=== PATIENT | female | born 1945 | race Caucasian/White ===

== ENCOUNTER → 2018-03-10 | Outpatient (CLI) | payer OTHER ==
[~2018-03-10] MED LIST: Align4 MG PO; CHOL10002 PO; CHRO200 PO; CYCL10 PO; Celexa10 MG PO; ESTR.1TPW TOP; Frova2.5 MG; KRILL OIL 1,001 EAC1; LEVSOD100 PO; LIDO5TP TOP; PRAV20 PO; PROG100 PO; TRAM50 PO; ZOLP10 PO; [UNRECOGNIZED DRUG - OTHER] PO
== END | disposition home or self-care (01) ==
LOC: PLD 07:45 → LAB SHORT 07:45
DX: L57.0 Actinic keratosis (principal)
CPT/HCPCS: 88305

== ENCOUNTER 2018-04-06 07:12 | Day surgery (SDC) | payer OTHER ==
[~2018-04-06] VITALS: Ht 170.2 cm; Wt 68.5 kg
[~2018-04-06 07:12] MED LIST changes: +ATOR40TA PO; +CALCIUM 600 +1 EAC4 PO; +CITA20 PO; +CRANBERRY250 MG PO; +LEVO-T100 MCG PO; +LOSA25 PO; +MEGARED OMEGA-1 EAC1 PO; +Multiple Vitam1 EACH PO; +Red Yeast Rice600 MG PO; +VITAMIN D35000 UNIT PO
== END 2018-04-06 09:20 | disposition home or self-care (01) ==
LOC: ORSCSDS 07:12
PROVIDERS: Internal Medicine Gastroenterology
PROC: 0DJD8ZZ Inspection of Lower Intestinal Tract, Via Natural or Artificial Opening Endoscopic (ICD-10-PCS; principal; 2018-04-06 08:30)
DX: Z12.11 Encounter for screening for malignant neoplasm of colon (principal); K64.8 Other hemorrhoids; Z86.010 Personal history of colon polyps; Z80.0 Family history of malignant neoplasm of digestive organs; M79.7 Fibromyalgia; E07.9 Disorder of thyroid, unspecified; I10 Essential (primary) hypertension; Z87.891 Personal history of nicotine dependence; Z79.899 Other long term (current) drug therapy
CPT/HCPCS: J0330; J1980; J2405; J7120

== ENCOUNTER → 2018-06-02 | Outpatient (CLI) | payer OTHER | END | disposition home or self-care (01) | LOC: LAB 16:50 → LAB SHORT 16:50 | PROVIDERS: Nurse Practitioner Women's Health | DX: Z12.4 Encounter for screening for malignant neoplasm of cervix (principal) | CPT/HCPCS: 87624; G0123 ==

== ENCOUNTER → 2019-06-07 | Outpatient (CLI) | payer OTHER ==
[2019-06-09 14:07] LABS: HPV 16 Negative (Negative); HPV 18 Negative (Negative); HPV OTHER HR TYPES Positive (Negative)
== END | disposition home or self-care (01) ==
LOC: LAB SHORT 12:31 → LAB 12:31
PROVIDERS: Nurse Practitioner Women's Health
DX: Z12.4 Encounter for screening for malignant neoplasm of cervix (principal); R87.810 Cervical high risk human papillomavirus (HPV) DNA test positive; Z91.89 Other specified personal risk factors, not elsewhere classified
CPT/HCPCS: 87624; 87625; G0123

== ENCOUNTER → 2019-06-22 | Outpatient (CLI) | payer OTHER ==
[2019-06-22 19:36] LABS: Source, Urine Catheter
[2019-06-22 19:41] LABS: Bilirubin, Urine Neg (Neg); Blood, Urine Neg (Neg); Glucose Qualitative, Urine Neg (Neg); Ketones, Urine Neg (Neg); Leukocyte Esterase, Urine Neg (Neg); Nitrite, Urine Neg (Neg); Protein, Urine Neg (Neg); Urobilinogen, Urine NORM (Normal)
[2019-06-22 19:51] LABS: Appearance, Urine Clear (Clear); Color, Urine Pale Yellow (P-Yellow)
== END | disposition home or self-care (01) ==
LOC: LAB SHORT 19:35 → LAB 19:35
PROVIDERS: Obstetrics & Gynecology Gynecology
DX: N39.41 Urge incontinence (principal)
CPT/HCPCS: 81003

== ENCOUNTER → 2020-08-21 | Outpatient (CLI) | payer OTHER | END | disposition home or self-care (01) | LOC: LAB SHORT 11:26 → PLD 11:26 | DX: D48.5 Neoplasm of uncertain behavior of skin (principal) | CPT/HCPCS: 88305 ==

== ENCOUNTER 2024-06-30 12:25 | Day surgery (SDC) | payer OTHER ==
[2024-06-30] MEDS ORDERED: Lidocaine HCl 4% Cream 5 GM ONE (13:28)
== END 2024-06-30 22:48 | disposition home or self-care (01) ==
LOC: WOUND 12:25
DX: S81.802A Unspecified open wound, left lower leg, initial encounter (principal); W22.8XXA Striking against or struck by other objects, initial encounter; L97.825 Non-pressure chronic ulcer of other part of left lower leg with muscle involvement without evidence of necrosis; I87.2 Venous insufficiency (chronic) (peripheral); I10 Essential (primary) hypertension; Z87.891 Personal history of nicotine dependence
CPT/HCPCS: A9270; G0463

== ENCOUNTER 2024-07-14 01:39 | Day surgery (SDC) | payer OTHER | END 2024-07-14 22:54 | disposition home or self-care (01) | LOC: WOUND 01:39 | DX: S81.812A Laceration without foreign body, left lower leg, initial encounter (principal); S81.802A Unspecified open wound, left lower leg, initial encounter; I87.2 Venous insufficiency (chronic) (peripheral); X58.XXXA Exposure to other specified factors, initial encounter | CPT/HCPCS: 87070; 87075; 87076; 87077; 87185; 87186; 87205; G0463 ==

== ENCOUNTER 2024-07-21 04:50 | Day surgery (SDC) | payer OTHER ==
[2024-07-21] MEDS ORDERED: Lidocaine HCl 4% Cream 5 GM ONE (11:21)
== END 2024-07-21 23:00 | disposition home or self-care (01) ==
LOC: WOUND 04:50
DX: S81.812A Laceration without foreign body, left lower leg, initial encounter (principal); S81.802A Unspecified open wound, left lower leg, initial encounter; I87.2 Venous insufficiency (chronic) (peripheral); W22.8XXA Striking against or struck by other objects, initial encounter
CPT/HCPCS: A9270

== ENCOUNTER 2024-08-04 04:46 | Day surgery (SDC) | payer OTHER ==
[2024-08-04] MEDS ORDERED: Lidocaine HCl 4% Cream 5 GM ONE (10:27)
== END 2024-08-04 23:00 | disposition home or self-care (01) ==
LOC: WOUND 04:46
DX: S81.802A Unspecified open wound, left lower leg, initial encounter (principal); W18.40XA Slipping, tripping and stumbling without falling, unspecified, initial encounter; I10 Essential (primary) hypertension
CPT/HCPCS: A9270

== ENCOUNTER 2024-08-10 02:23 | Day surgery (SDC) | payer OTHER ==
[2024-08-10] MEDS ORDERED: Lidocaine HCl 4% Cream 5 GM ONE (09:52)
== END 2024-08-10 23:00 | disposition home or self-care (01) ==
LOC: WOUND 02:23
DX: S81.802A Unspecified open wound, left lower leg, initial encounter (principal); I10 Essential (primary) hypertension
CPT/HCPCS: A9270

== ENCOUNTER 2024-08-17 04:13 | Day surgery (SDC) | payer OTHER ==
[2024-08-17] MEDS ORDERED: Lidocaine HCl 4% Cream 5 GM ONE (09:55)
== END 2024-08-17 23:20 | disposition home or self-care (01) ==
LOC: WOUND 04:13
DX: S81.802D Unspecified open wound, left lower leg, subsequent encounter (principal); I10 Essential (primary) hypertension
CPT/HCPCS: A9270; G0463

== ENCOUNTER 2024-08-24 01:28 | Day surgery (SDC) | payer OTHER ==
[2024-08-24] MEDS ORDERED: Lidocaine HCl 4% Cream 5 GM ONE (10:37)
== END 2024-08-24 23:00 | disposition home or self-care (01) ==
LOC: WOUND 01:28
DX: L97.822 Non-pressure chronic ulcer of other part of left lower leg with fat layer exposed (principal); I87.2 Venous insufficiency (chronic) (peripheral); I10 Essential (primary) hypertension
CPT/HCPCS: A9270

== ENCOUNTER 2024-08-31 02:16 | Day surgery (SDC) | payer OTHER | END 2024-08-31 23:00 | disposition home or self-care (01) | LOC: WOUND 02:16 | DX: L97.822 Non-pressure chronic ulcer of other part of left lower leg with fat layer exposed (principal); I10 Essential (primary) hypertension; S81.812D Laceration without foreign body, left lower leg, subsequent encounter; I87.2 Venous insufficiency (chronic) (peripheral); X58.XXXD Exposure to other specified factors, subsequent encounter | CPT/HCPCS: G0463 ==

== ENCOUNTER 2024-09-07 02:02 | Day surgery (SDC) | payer OTHER ==
[2024-09-07] MEDS ORDERED: Lidocaine HCl 4% Cream 5 GM ONE (10:27)
== END 2024-09-07 23:00 | disposition home or self-care (01) ==
LOC: WOUND 02:02
DX: L97.823 Non-pressure chronic ulcer of other part of left lower leg with necrosis of muscle (principal); S81.812D Laceration without foreign body, left lower leg, subsequent encounter; S81.802D Unspecified open wound, left lower leg, subsequent encounter; I87.2 Venous insufficiency (chronic) (peripheral); X58.XXXD Exposure to other specified factors, subsequent encounter
CPT/HCPCS: A9270; G0463

== ENCOUNTER 2024-09-21 00:57 | Day surgery (SDC) | payer OTHER | END 2024-09-21 23:30 | disposition home or self-care (01) | LOC: WOUND 00:57 | DX: L97.822 Non-pressure chronic ulcer of other part of left lower leg with fat layer exposed (principal); S81.812D Laceration without foreign body, left lower leg, subsequent encounter; S81.802D Unspecified open wound, left lower leg, subsequent encounter; I87.2 Venous insufficiency (chronic) (peripheral); X58.XXXD Exposure to other specified factors, subsequent encounter | CPT/HCPCS: G0463 ==

== ENCOUNTER 2024-09-28 04:57 | Day surgery (SDC) | payer OTHER | END 2024-09-29 00:03 | disposition home or self-care (01) | LOC: WOUND 04:57 | DX: L97.823 Non-pressure chronic ulcer of other part of left lower leg with necrosis of muscle (principal); I10 Essential (primary) hypertension; S81.812D Laceration without foreign body, left lower leg, subsequent encounter; I87.2 Venous insufficiency (chronic) (peripheral); X58.XXXD Exposure to other specified factors, subsequent encounter | CPT/HCPCS: A6213; G0463 ==

== ENCOUNTER 2024-10-05 02:51 | Day surgery (SDC) | payer OTHER | END 2024-10-05 23:00 | disposition home or self-care (01) | LOC: WOUND 02:51 | DX: L97.822 Non-pressure chronic ulcer of other part of left lower leg with fat layer exposed (principal); I87.2 Venous insufficiency (chronic) (peripheral); I10 Essential (primary) hypertension | CPT/HCPCS: A6213; G0463 ==

== ENCOUNTER 2024-10-12 04:23 | Day surgery (SDC) | payer OTHER | END 2024-10-12 23:00 | disposition home or self-care (01) | LOC: WOUND 04:23 | DX: L97.822 Non-pressure chronic ulcer of other part of left lower leg with fat layer exposed (principal); S81.812D Laceration without foreign body, left lower leg, subsequent encounter; S81.802D Unspecified open wound, left lower leg, subsequent encounter; I87.2 Venous insufficiency (chronic) (peripheral); X58.XXXD Exposure to other specified factors, subsequent encounter | CPT/HCPCS: A6213; G0463 ==

== ENCOUNTER 2024-10-29 05:18 | Day surgery (SDC) | payer OTHER | END 2024-10-29 23:00 | disposition home or self-care (01) | LOC: WOUND 05:18 | DX: L97.822 Non-pressure chronic ulcer of other part of left lower leg with fat layer exposed (principal); S81.812D Laceration without foreign body, left lower leg, subsequent encounter; S81.802D Unspecified open wound, left lower leg, subsequent encounter; I87.2 Venous insufficiency (chronic) (peripheral); X58.XXXD Exposure to other specified factors, subsequent encounter | CPT/HCPCS: A6213; G0463 ==

== ENCOUNTER 2024-11-02 06:23 | Day surgery (SDC) | payer OTHER | END 2024-11-02 23:00 | disposition home or self-care (01) | LOC: WOUND 06:23 | DX: L97.822 Non-pressure chronic ulcer of other part of left lower leg with fat layer exposed (principal); I87.2 Venous insufficiency (chronic) (peripheral); I10 Essential (primary) hypertension | CPT/HCPCS: G0463 ==

== ENCOUNTER 2025-02-15 10:41 | Inpatient (IN) | payer OTHER ==
[~2025-02-15] VITALS: Ht 167.6 cm; Wt 57.8 kg
[2025-02-15] VITALS (19 sets, daily range): BP systolic 112–137; BP diastolic 57–80
[2025-02-15] MEDS ORDERED: NS 1,000 ML IV SCH ×2 (11:45→14:05)
[2025-02-15] MEDS ORDERED: Mag Sulfate 1 GM/D5% 100ML 100 ML IV ONE (11:50)
[2025-02-15 11:51] LABS: BASOPHILS ABSOLUTE AUTO 0.02 K/mm3 (0.00-0.23); BASOPHILS PERCENT AUTO 0 % (0-2); EOSINOPHILS ABSOLUTE AUTO 0.01 K/mm3 (0.00-0.68); EOSINOPHILS PERCENT AUTO 0 % (0-6); Hematocrit 35.1 % (33.0-51.0); Hemoglobin 12.7 g/dL (11.5-16.0); IMMATURE GRAN ABSOLUTE AUTO 0.06 K/mm3 (0.00-0.10); IMMATURE GRAN PERCENT AUTO 0 % (0-1); LYMPHOCYTES ABSOLUTE AUTO 0.67 K/mm3 (0.84-5.20); LYMPHOCYTES PERCENT AUTO 4 % (21-46); MONOCYTES ABSOLUTE AUTO 0.92 K/mm3 (0.16-1.47); MONOCYTES PERCENT AUTO 6 % (4-13); Mean Corpuscular HGB 32.5 pg (26.0-34.0); Mean Corpuscular HGB Conc 36.2 g/dL (31.5-36.5); Mean Corpuscular Volume 90 fL (80-100); Mean Platelet Volume 10.8 fL (9.1-12.4); NEUTROPHILS ABSOLUTE AUTO 13.57 K/mm3 (1.96-9.15); NEUTROPHILS PERCENT AUTO 89 % (41-73); Platelet Count 326 K/mm3 (150-400); RDW Coefficient Variation 13.3 % (11.7-14.2); RDW Standard Deviation 42.5 fL (35.1-46.3); Red Blood Cell Count 3.91 M/mm3 (3.80-5.20); White Blood Cell Count 15.25 K/mm3 (4.00-11.30)
[2025-02-15 13:10] LABS: Albumin, Blood 3.8 g/dL (3.4-5.0); Albumin/Globulin Ratio 1.2 (0.8-1.8); Bilirubin, Total 1.2 mg/dL (0.1-1.0); Bun/Creatinine Ratio 20.8 (12.0-20.0); Calcium, Blood 8.6 mg/dL (8.5-10.1); Creatinine, Blood 1.44 mg/dL (0.40-1.00); Globulin, Blood 3.1 g/dL (2.2-4.0); Potassium, Blood 3.9 mmol/L (3.5-5.5); Total Protein, Blood 6.9 g/dL (6.4-8.2)
[2025-02-15] MEDS ORDERED: Meclizine HCl 25 MG Tab PO ONE (13:10)
[2025-02-15 13:24] LABS: Calcium, Ionized (POC) 1.01 mmol/L (1.10-1.46); Chloride (POC) 77 mmol/L (98-108); Creatinine (POC) 1.6 mg/dL (0.6-1.0); Glucose (ISTAT POC) 157 mg/dL (70-99); Hemoglobin (POC) 12.6 g/dL (12.0-16.0); Potassium (POC) 2.1 mmol/L (3.5-5.5); Sodium (POC) 118 mmol/L (135-148); Total CO2 (POC) 31 mmol/L (21-32)
--- NOTE | 2025-02-15 16:36 | NUR ---
1550- RN TRIED CALLING FOR REPORT. ANJUM CAMPBELL BUSY. ANJUM CAMPBELL TO CALL THIS RN BACK.
--- NOTE | 2025-02-15 16:37 | NUR ---
5371- REPORT RECEIVED FROM FACULTY PHYSICIAN ADRIAN.
[2025-02-15 16:52] LABS: Bun/Creatinine Ratio 23.6 (12.0-20.0); Calcium, Blood 8.4 mg/dL (8.5-10.1); Creatinine, Blood 1.27 mg/dL (0.40-1.00); Potassium, Blood 3.3 mmol/L (3.5-5.5)
[2025-02-15] MEDS ORDERED: Sodium Chloride 3% 500 ML IV SCH (17:05)
[2025-02-15 17:06] LABS: Source, Urine Clean Catch
[2025-02-15 17:17] LABS: Appearance, Urine Clear (Clear); Bilirubin, Urine Neg (Neg); Blood, Urine Neg (Neg); Glucose Qualitative, Urine Neg (Neg); Ketones, Urine Neg (Neg); Leukocyte Esterase, Urine Neg (Neg); Nitrite, Urine Neg (Neg); Protein, Urine Neg (Neg); Urobilinogen, Urine NORM (Normal)
[2025-02-15 17:53] LABS: Color, Urine Pale Yellow (P-Yellow)
[2025-02-15] MEDS ORDERED: Potassium Chloride 10 Meq Tablet SA PO ONE (18:15)
--- NOTE | 2025-02-15 19:20 | NUR ---
CENTRAL LINE DISCUSSION WITH DR. WINTER SPOKE WITH DR. WINTER ABOUT THIS PT BEING ADMITTED FOR HYPONATREMIA AND THAT DR. GUERRERO IS ADAMANT THAT THIS PT HAVE A CENTRAL LINE. AFTER DISCUSSION WITH DR. WINTER, HE'S OK WITH HYPERTONIC SALINE TO RUN THROUGH A PERIPHERAL IV.
[2025-02-15 22:48] LABS: Bun/Creatinine Ratio 25.2 (12.0-20.0); Calcium, Blood 8.9 mg/dL (8.5-10.1); Creatinine, Blood 1.19 mg/dL (0.40-1.00); Potassium, Blood 2.1 mmol/L (3.5-5.5)
[2025-02-15] MEDS ORDERED: Potassium Chloride 40 MEQ in NS 250 ML IV ONE (23:00)
[2025-02-15] MEDS ORDERED: Potassium Chloride 20 MEQ TabCR PO ONE (23:00)
[2025-02-15] MEDS ORDERED: NS 250 ML IV PRN (23:50)
[2025-02-16] VITALS (30 sets, daily range): BP systolic 81–137; BP diastolic 38–93
[2025-02-16 02:35] LABS: Bun/Creatinine Ratio 26.7 (12.0-20.0); Calcium, Blood 8.8 mg/dL (8.5-10.1); Creatinine, Blood 1.01 mg/dL (0.40-1.00); Potassium, Blood 2.6 mmol/L (3.5-5.5)
--- NOTE | 2025-02-16 05:31 | NUR ---
SHIFT SUMMARY: PT IS A&OX4. FOLLOWS COMMANDS,ABLE TO MAKE NEEDS KNOWN AND PARTICIPATES IN CONVERSATION APPROPRIATELY. PT AFEBRILE T/O SHIFT. PT ON RA, SATS >95%. LUNG RAMIREZ CLEAR. HR 70S-80S,SINUS. SBP 110S-130S. PER PT, SHE HAS BEEN CONSTIPATED PAST FEW DAYS AND TOOK [id number] BOWEL MEDS. SHE HAD A COUPLE BMS 02/15/25, IN THE ED. ALMEIDA CATH REMAINS IN PLACE, PATENT,DRAINIG TO GRAVITY. PT REFUSED SCD'S. PT HAS MULTIPLE SCATTERED BRUISING AND WOUNDS FROM RECENT FALL. THESE WERE PHOTOGRAPHED AND DOCUMENTED IN CHART. PT HAS BILAT PERIPHERAL IVS. 20G IN DEBBIE AND 20G IN LAC. THIS RN TO REPORT TO ONCOMING RN.
[2025-02-16 06:11] LABS: BASOPHILS ABSOLUTE AUTO 0.03 K/mm3 (0.00-0.23); BASOPHILS PERCENT AUTO 0 % (0-2); EOSINOPHILS ABSOLUTE AUTO 0.01 K/mm3 (0.00-0.68); EOSINOPHILS PERCENT AUTO 0 % (0-6); Hematocrit 33.3 % (33.0-51.0); Hemoglobin 12.3 g/dL (11.5-16.0); IMMATURE GRAN ABSOLUTE AUTO 0.03 K/mm3 (0.00-0.10); IMMATURE GRAN PERCENT AUTO 0 % (0-1); LYMPHOCYTES PERCENT AUTO 16 % (21-46); MONOCYTES ABSOLUTE AUTO 0.73 K/mm3 (0.16-1.47); MONOCYTES PERCENT AUTO 8 % (4-13); Mean Corpuscular HGB 32.6 pg (26.0-34.0); Mean Corpuscular HGB Conc 36.9 g/dL (31.5-36.5); Mean Corpuscular Volume 88 fL (80-100); Mean Platelet Volume 9.4 fL (9.1-12.4); NEUTROPHILS ABSOLUTE AUTO 7.04 K/mm3 (1.96-9.15); NEUTROPHILS PERCENT AUTO 75 % (41-73); Platelet Count 299 K/mm3 (150-400); RDW Coefficient Variation 12.8 % (11.7-14.2); RDW Standard Deviation 41.6 fL (35.1-46.3); Red Blood Cell Count 3.77 M/mm3 (3.80-5.20); White Blood Cell Count 9.34 K/mm3 (4.00-11.30)
[2025-02-16 07:14] LABS: Bun/Creatinine Ratio 26.4 (12.0-20.0); Calcium, Blood 8.5 mg/dL (8.5-10.1); Creatinine, Blood 0.95 mg/dL (0.40-1.00); Magnesium, Blood 2.6 mg/dL (1.6-2.4); Potassium, Blood 2.6 mmol/L (3.5-5.5)
[2025-02-16] MEDS ORDERED: Enoxaparin 40 MG/0.4 ML SYR SC SCH (09:00)
--- NOTE | 2025-02-16 09:46 | NUR ---
0700 ASSUMPTION OF CARE PT IS AWAKE AND ALERT AND ORIENTED. SHE IS MAEW. SHE IS SORE ON HER BOTTOM FROM HER RECIENT FALL SHE STATED. SHE IS EAGER FOR COFFEE AND BREAKFAST. HER POTASSIUM IV IS JUST FINISHED AND OTHERWISE SHE HAS A TKO TO IT VIA RIGHT AC 18G IV. HER LEFT AC 20G IV IS SALINE LOCKED. SHE HAS A ALMEIDA INPLACE D/T RETENSION IN THE ER.
[2025-02-16 11:38] LABS: Bun/Creatinine Ratio 25.7 (12.0-20.0); Calcium, Blood 9.3 mg/dL (8.5-10.1); Creatinine, Blood 0.97 mg/dL (0.40-1.00); Potassium, Blood 2.6 mmol/L (3.5-5.5)
[2025-02-16] MEDS ORDERED: Potassium Chloride 20 MEQ/15 ML UDC PO ONE (12:05)
[2025-02-16] MEDS ORDERED: Potassium Chloride 40 MEQ in NS 250 ML IV ONE (12:10)
--- NOTE | 2025-02-16 14:45 | NUR ---
Pt. is awake in bed when she welcomes my visit. Pt. is pleasant. Faciltated a life review and listened with empathy and interest. Pt. displayed evidence of awareness and engagement. Rapport is established when we discussed our community connections. While the pt. displays little interest in discussing personal juan antonio or belief, she welcomes prayer. Prayed with Pt. Pt. verbalized gratitude for the spiritual care visit.
[2025-02-16] MEDS ORDERED: FURO40 PO (15:15)
[2025-02-16] MEDS ORDERED: EUTHYROX88 MCG PO (15:18)
[2025-02-16] MEDS ORDERED: LOSA25 PO (15:19)
[2025-02-16] MEDS ORDERED: MELO7.5 PO (15:22)
[2025-02-16] MEDS ORDERED: OMEP20ER PO (15:23)
[2025-02-16] MEDS ORDERED: POTA10T PO (15:26)
[2025-02-16] MEDS ORDERED: AMBIEN10 MG PO (15:28)
[2025-02-16] MEDS ORDERED: Sodium Chloride 1 GM TAB PO SCH (16:00)
--- NOTE | 2025-02-16 18:23 | NUR ---
END OF SHIFT SUMMARY PATIENT HAS BEEN GETTING POTASSIUM ALMOST ALL DAY VIA IV AND SHE GOT A 40 MEQ PO LIQUID POTASSIUM ABOUT NOON. LABS DRAWN AT 1820 AWAITING RESULTS. SHE HAS BEEN UP TO BS TOILET 5 TIMES TODAY 4 FOR STOOL AND ONE LAST TIME TO VOID URINE AND DID!. HER POST VOID RESIDUAL ULTRA SOUND WAS 9ML. PT HAS TWO PIV'S SALINE LOCKED NOW. SHE IS ABLE TO EAT MOST OF HER MEALS AND HAD A CUP OF BROTH. FAMILY HAS CALLED HER. PT IS STILL SLIGHTLY TACHY UP TO LOW 100'S WHEN OUT OF BED TO TOILET. LESS DIZZY THIS AFTERNOON WHEN OUT OF BED. WILL GIVE REPORT TO NEXT SHIFT TO RESUME CARE.
[2025-02-16 19:06] LABS: Bun/Creatinine Ratio 29.4 (12.0-20.0); Calcium, Blood 8.7 mg/dL (8.5-10.1); Creatinine, Blood 1.02 mg/dL (0.40-1.00)
[2025-02-16 22:19] LABS: Bun/Creatinine Ratio 29.4 (12.0-20.0); Calcium, Blood 8.7 mg/dL (8.5-10.1); Creatinine, Blood 0.95 mg/dL (0.40-1.00); Potassium, Blood 3.6 mmol/L (3.5-5.5)
[2025-02-17] VITALS (11 sets, daily range): BP systolic 101–140; BP diastolic 55–113
[2025-02-17 03:58] LABS: BASOPHILS ABSOLUTE AUTO 0.04 K/mm3 (0.00-0.23); BASOPHILS PERCENT AUTO 1 % (0-2); EOSINOPHILS ABSOLUTE AUTO 0.05 K/mm3 (0.00-0.68); EOSINOPHILS PERCENT AUTO 1 % (0-6); Hematocrit 31.9 % (33.0-51.0); Hemoglobin 11.1 g/dL (11.5-16.0); IMMATURE GRAN ABSOLUTE AUTO 0.02 K/mm3 (0.00-0.10); IMMATURE GRAN PERCENT AUTO 0 % (0-1); LYMPHOCYTES ABSOLUTE AUTO 1.97 K/mm3 (0.84-5.20); LYMPHOCYTES PERCENT AUTO 28 % (21-46); MONOCYTES PERCENT AUTO 8 % (4-13); Mean Corpuscular HGB 31.8 pg (26.0-34.0); Mean Corpuscular HGB Conc 34.8 g/dL (31.5-36.5); Mean Corpuscular Volume 91 fL (80-100); Mean Platelet Volume 9.3 fL (9.1-12.4); NEUTROPHILS ABSOLUTE AUTO 4.49 K/mm3 (1.96-9.15); NEUTROPHILS PERCENT AUTO 63 % (41-73); Platelet Count 274 K/mm3 (150-400); RDW Coefficient Variation 12.9 % (11.7-14.2); RDW Standard Deviation 42.5 fL (35.1-46.3); Red Blood Cell Count 3.49 M/mm3 (3.80-5.20); White Blood Cell Count 7.17 K/mm3 (4.00-11.30)
[2025-02-17 04:24] LABS: Bun/Creatinine Ratio 27.1 (12.0-20.0); Calcium, Blood 8.8 mg/dL (8.5-10.1); Creatinine, Blood 0.77 mg/dL (0.40-1.00); Potassium, Blood 3.4 mmol/L (3.5-5.5); Thyroid Stimulating Hormone 0.961 uIU/mL (0.360-4.800)
[2025-02-17] MEDS ORDERED: Potassium Chloride 20 MEQ TabCR PO ONE (05:35)
[2025-02-17] MEDS ORDERED: POTCHL20ER PO (13:01)
[2025-02-17] MEDS ORDERED: SODCHL1 PO (13:02)
--- NOTE | 2025-02-17 13:42 | NUR ---
THIS RN OVERSAW AND REVIEWED STUDENT RN'S CHARTING AND AGREES WITH STUDENT RN.
--- NOTE | 2025-02-17 13:43 | NUR ---
DISCHARGE UPDATE DISCHARGE PACKET GONE OVER WITH PT AND PT FAMILY MEMBER AT 1335. PT DISCHARGED AT 1355 VIA WHEELCHAIR AND ON RA. PT PERSONAL BELONGINGS AND DISCHARGE PACKET WITH PT AT TIME OF DISCHARGE. PT ABLE TO TRANSFER TO AND FROM WHEELCHAIR ON HER OWN, TOLERATED WELL.
== END 2025-02-17 14:39 | disposition home or self-care (01) | DRG 644 ==
LOC: ER 10:41 → MEDS 12:41 → ICUE 12:41
PROVIDERS: Emergency Medicine; ADMIT Family Medicine
DX: E22.2 Syndrome of inappropriate secretion of antidiuretic hormone (principal); N17.9 Acute kidney failure, unspecified; I95.1 Orthostatic hypotension; K59.00 Constipation, unspecified; E03.9 Hypothyroidism, unspecified; Z66 Do not resuscitate; E78.5 Hyperlipidemia, unspecified; I10 Essential (primary) hypertension; F32.A Depression, unspecified; E86.0 Dehydration; R94.31 Abnormal electrocardiogram [ECG] [EKG]; W18.30XA Fall on same level, unspecified, initial encounter; D72.829 Elevated white blood cell count, unspecified; E87.6 Hypokalemia; S63.260A Dislocation of metacarpophalangeal joint of right index finger, initial encounter; Z90.89 Acquired absence of other organs; Z98.890 Other specified postprocedural states; Z87.891 Personal history of nicotine dependence; Z79.890 Hormone replacement therapy; Z79.899 Other long term (current) drug therapy
CPT/HCPCS: 36415; 71045; 80047; 80048; 80053; 81003; 83735; 83930; 84132; 84295; 84300; 84443; 84484; 85014; 85025; 93005; 93010; 96365; 99285-25; A9270; J1650; J3475; J3480; J7030; J7050